=== PATIENT | male | born 1985 | race Caucasian/White ===

== ENCOUNTER 2024-09-28 06:13 | Emergency (ER) | payer OTHER ==
[~2024-09-28] VITALS: Ht 165.1 cm; Wt 100.0 kg
[2024-09-28 06:33] VITALS: BP 143/89; TEMP 98.4
[2024-09-28 09:20] VITALS: PULSE 92; RESP 24; O2SAT 96
[2024-09-28] MEDS: IPRATROPIUM/ALBUTEROL 0.5-3(2.5)MG/3ML NEB HHN ONE (09:20)
== END 2024-09-28 10:09 | disposition home or self-care (01) ==
LOC: ER 06:13
DX: R05.9 Cough, unspecified (principal); Z20.822 Contact with and (suspected) exposure to COVID-19
CPT/HCPCS: 87804 ×2; 71045; 94640; 94070; 99284; 87426; Z7610 ×3